=== PATIENT | male | born 1955 | race Caucasian/White ===

== ENCOUNTER 2019-04-06 18:06 | Inpatient (IN) | payer OTHER ==
[2019-04-06 18:20] LABS: ADD MAN DIFF? NO
[2019-04-06 18:24] LABS: BASOPHIL # 0.1 10^3/ul (0.0-0.1); BASOPHILS % 0.7 % (0.0-2.0); EOSINOPHILS # 0.2 10^3/ul (0.0-0.5); EOSINOPHILS % 2.1 % (0.0-7.0); HEMATOCRIT 43.2 % (42.0-52.0); HEMOGLOBIN 14.4 g/dl (14.0-18.0); LYMPHOCYTES # 1.4 10^3/ul (0.8-2.9); LYMPHOCYTES % 18.6 % (15.0-51.0); MEAN CORPUSCULAR HEMOGLOBIN 31.9 pg (29.0-33.0); MEAN CORPUSCULAR HGB CONC 33.3 g/dl (32.0-37.0); MEAN CORPUSCULAR VOLUME 95.6 fl (82.0-101.0); MONOCYTE # 0.6 10^3/ul (0.3-0.9); MONOCYTES % 7.9 % (0.0-11.0); NEUTROPHIL # 5.2 10^3/ul (1.6-7.5); NEUTROPHILS % 70.3 % (39.0-77.0); PLATELET COUNT 153 10^3/UL (140-415); RED BLOOD COUNT 4.52 10^6/ul (4.70-6.10); RED CELL DISTRIBUTION WIDTH 13.2 % (11.5-14.5)
[2019-04-06 18:24] LABS: WHITE BLOOD COUNT 7.5 10^3/ul (4.8-10.8)
[2019-04-06 18:38] LABS: HEMOGLOBIN A1C 5.3 % (0-5.9)
[2019-04-06 18:42] LABS: ALANINE AMINOTRANSFERASE 29 IU/L (13-69); ALBUMIN 4.4 g/dl (3.3-4.9); ALBUMIN/GLOBULIN RATIO 1.62; ALKALINE PHOSPHATASE 68 IU/L (42-121); ANION GAP 10 (5-13); ASPARTATE AMINO TRANSFERASE 23 IU/L (15-46); BILIRUBIN,INDIRECT 0.6 mg/dl (0-1.1); BILIRUBIN,TOTAL 0.6 mg/dl (0.2-1.3); BLOOD UREA NITROGEN 13 mg/dl (7-20); CALCIUM 9.4 mg/dl (8.4-10.2); CARBON DIOXIDE 23 mmol/L (21-31); CHLORIDE 108 mmol/L (97-110); CHOL/HDL RATIO 4.3 RATIO; CHOLESTEROL 138 mg/dl (100-200); CREATINE KINASE 85 IU/L (23-200); CREATININE 1.27 mg/dl (0.61-1.24); Estimated GFR 57 mL/min (>60); GLUCOSE 101 mg/dl (70-220); HDL CHOLESTEROL 32 mg/dl (30-78); LDL CHOLESTEROL,CALCULATED 82 mg/dl; SODIUM 141 mmol/L (135-144); TOTAL PROTEIN 7.1 g/dl (6.1-8.1); TRIGLYCERIDES 119 mg/dl (0-149)
[2019-04-06 18:44] LABS: INR 0.97; PARTIAL THROMBOPLASTIN TIME 29.6 Sec (23.0-35.0)
[2019-04-06 18:51] LABS: ETHANOL < 10.0 mg/dl (0-0)
[2019-04-06 18:53] LABS: CK-MB 0.85 ng/ml (0.0-2.4); TROPONIN-I < 0.012 ng/ml (0.000-0.120)
[2019-04-06] MEDS ORDERED: ONDANSETRON 4 MG INJ IV (20:30)
[2019-04-06] MEDS ORDERED: ACETAMINOPHEN 325 MG TAB PO (20:30)
[2019-04-06] MEDS: ASPIRIN (EC) 81 MG TAB PO (20:51)
[2019-04-06 22:07] LABS: AMPHETAMINE/METHAMPHETAMINE Negative (NEGATIVE); BARBITURATES Negative (NEGATIVE); BENZODIAZEPINES Negative (NEGATIVE); CANNABINOIDS Positive (NEGATIVE); COCAINE Negative (NEGATIVE); OPIATES Negative (NEGATIVE)
[2019-04-06] MEDS: SOD CHLORIDE 0.9% 100 ML (22:56)
[2019-04-06] MEDS: IOHEXOL 100 ML (22:56)
[2019-04-07] MEDS ORDERED: ONDANSETRON 4 MG INJ IV (01:00)
[2019-04-07] MEDS ORDERED: ACETAMINOPHEN 325 MG TAB PO (01:00)
[2019-04-07] MEDS ORDERED: ALBUTEROL/IPRATROPIUM (NEB) 3 ML AMP HHN (01:00)
[2019-04-07] MEDS ORDERED: NACL 0.9% 3 ML SYG IV (01:00)
[2019-04-07 01:27] LABS: ADD UMIC NO; UR ASCORBIC ACID NEGATIVE (NEGATIVE); UR BILIRUBIN (Dip) NEGATIVE (NEGATIVE); UR BLOOD (Dip) NEGATIVE (NEGATIVE); UR CLARITY CLEAR (CLEAR); UR COLOR YELLOW (YELLOW); UR GLUCOSE (Dip) NEGATIVE (NEGATIVE); UR KETONES (Dip) NEGATIVE (NEGATIVE); UR LEUKOCYTE ESTERASE (Dip) NEGATIVE Leu/ul (NEGATIVE); UR NITRITE (Dip) NEGATIVE (NEGATIVE); UR SPECIFIC GRAVITY (Dip) 1.008 (1.003-1.030); UR TOTAL PROTEIN (Dip) NEGATIVE (NEGATIVE); UR UROBILINOGEN (Dip) NEGATIVE (NEGATIVE)
[2019-04-07] MEDS: PANTOPRAZOLE 40 MG INJ IV (01:51)
[2019-04-07 07:25] LABS: ADD MAN DIFF? NO
[2019-04-07 07:33] LABS: BASOPHIL # 0.1 10^3/ul (0.0-0.1); BASOPHILS % 0.9 % (0.0-2.0); EOSINOPHILS # 0.2 10^3/ul (0.0-0.5); EOSINOPHILS % 2.8 % (0.0-7.0); HEMATOCRIT 40.9 % (42.0-52.0); HEMOGLOBIN 13.4 g/dl (14.0-18.0); LYMPHOCYTES # 1.3 10^3/ul (0.8-2.9); MEAN CORPUSCULAR HEMOGLOBIN 31.8 pg (29.0-33.0); MEAN CORPUSCULAR HGB CONC 32.8 g/dl (32.0-37.0); MEAN CORPUSCULAR VOLUME 96.9 fl (82.0-101.0); MEAN PLATELET VOLUME 10.4 fl (7.4-10.4); MONOCYTE # 0.4 10^3/ul (0.3-0.9); MONOCYTES % 7.2 % (0.0-11.0); NEUTROPHIL # 3.7 10^3/ul (1.6-7.5); NEUTROPHILS % 65.7 % (39.0-77.0); PLATELET COUNT 122 10^3/UL (140-415); RED BLOOD COUNT 4.22 10^6/ul (4.70-6.10); RED CELL DISTRIBUTION WIDTH 13.2 % (11.5-14.5)
[2019-04-07 07:33] LABS: WHITE BLOOD COUNT 5.7 10^3/ul (4.8-10.8)
[2019-04-07] MEDS: CLOPIDOGREL 75 MG TAB PO (07:39)
[2019-04-07 07:58] LABS: HEMOGLOBIN A1C 5.4 % (0-5.9)
[2019-04-07 08:16] LABS: ALANINE AMINOTRANSFERASE 27 IU/L (13-69); ALBUMIN 3.8 g/dl (3.3-4.9); ALBUMIN/GLOBULIN RATIO 1.46; ALKALINE PHOSPHATASE 60 IU/L (42-121); ANION GAP 6 (5-13); ASPARTATE AMINO TRANSFERASE 39 IU/L (15-46); BILIRUBIN,INDIRECT 0.6 mg/dl (0-1.1); BILIRUBIN,TOTAL 0.6 mg/dl (0.2-1.3); BLOOD UREA NITROGEN 11 mg/dl (7-20); CARBON DIOXIDE 27 mmol/L (21-31); CHLORIDE 110 mmol/L (97-110); CHOL/HDL RATIO 4.6 RATIO; CHOLESTEROL 125 mg/dl (100-200); CK INDEX 1.2; CK-MB 0.86 ng/ml (0.0-2.4); CREATINE KINASE 71 IU/L (23-200); CREATININE 0.97 mg/dl (0.61-1.24); Estimated GFR > 60 mL/min (>60); GLUCOSE 77 mg/dl (70-220); HDL CHOLESTEROL 27 mg/dl (30-78); LDL CHOLESTEROL,CALCULATED 72 mg/dl; POTASSIUM 3.3 mmol/L (3.5-5.1); SODIUM 143 mmol/L (135-144); TOTAL PROTEIN 6.4 g/dl (6.1-8.1); TRIGLYCERIDES 130 mg/dl (0-149); TROPONIN-I 0.015 ng/ml (0.000-0.120)
[2019-04-07] MEDS: ASPIRIN 81 MG TAB PO (09:14)
[2019-04-07] MEDS: HEPARIN 5,000 UNIT/1 ML VIAL SC ×2 (09:38→20:32)
[2019-04-07] MEDS ORDERED: LORAZEPAM 2 MG INJ IV (12:00)
[2019-04-07] MEDS: POTASSIUM CHLORIDE (SR) 20 MEQ TAB PO (12:01)
[2019-04-07] MEDS: PANTOPRAZOLE (EC) 40 MG TAB PO (12:01)
[2019-04-07] MEDS ORDERED: POTASSIUM CHLORIDE (SR) 20 MEQ TAB PO (13:48)
[2019-04-07] MEDS ORDERED: VANCOMYCIN IV PER PHARMACY XX (14:00)
[2019-04-07] MEDS ORDERED: hydrALAzine 20 MG INJ IV (14:00)
[2019-04-07] MEDS: VANCOMYCIN HCL 2 GM in SOD CHLORIDE 0.9% 500 ML IVPB (15:15)
[2019-04-07 17:11] LABS: ERYTHROCYTE SEDIMENTATION RATE 14 mm/Hr (0-20)
[2019-04-07 17:12] LABS: RAPID PLASMA REAGIN NONREACTIVE (NR)
[2019-04-07] MEDS: ATORVASTATIN 80 MG TAB PO (20:29)
[2019-04-07] MEDS ORDERED: ATORVASTATIN 20 MG TAB PO (21:00)
[2019-04-07] MEDS: LORAZEPAM 2 MG INJ IV (21:13)
[2019-04-07] MEDS: VANCOMYCIN 1.5 GM/NS 250 ML 250 ML IVPB (22:22)
[2019-04-08] MEDS: PANTOPRAZOLE (EC) 40 MG TAB PO (05:50)
[2019-04-08 06:40] LABS: ADD MAN DIFF? NO
[2019-04-08 06:46] LABS: BASOPHILS % 0.8 % (0.0-2.0); EOSINOPHILS # 0.1 10^3/ul (0.0-0.5); EOSINOPHILS % 2.6 % (0.0-7.0); HEMATOCRIT 40.8 % (42.0-52.0); HEMOGLOBIN 13.4 g/dl (14.0-18.0); LYMPHOCYTES # 1.2 10^3/ul (0.8-2.9); LYMPHOCYTES % 23.7 % (15.0-51.0); MEAN CORPUSCULAR HEMOGLOBIN 31.8 pg (29.0-33.0); MEAN CORPUSCULAR HGB CONC 32.8 g/dl (32.0-37.0); MEAN CORPUSCULAR VOLUME 96.7 fl (82.0-101.0); MEAN PLATELET VOLUME 10.2 fl (7.4-10.4); MONOCYTE # 0.5 10^3/ul (0.3-0.9); MONOCYTES % 10.4 % (0.0-11.0); NEUTROPHIL # 3.1 10^3/ul (1.6-7.5); NEUTROPHILS % 62.3 % (39.0-77.0); PLATELET COUNT 113 10^3/UL (140-415); POSITIVE DIFF @See below; RED BLOOD COUNT 4.22 10^6/ul (4.70-6.10); RED CELL DISTRIBUTION WIDTH 13.2 % (11.5-14.5)
[2019-04-08 07:20] LABS: ANION GAP 5 (5-13); BLOOD UREA NITROGEN 8 mg/dl (7-20); CALCIUM 8.9 mg/dl (8.4-10.2); CARBON DIOXIDE 26 mmol/L (21-31); CHLORIDE 111 mmol/L (97-110); CREATININE 0.78 mg/dl (0.61-1.24); Estimated GFR > 60 mL/min (>60); GLUCOSE 93 mg/dl (70-220); PHOSPHORUS 3.6 mg/dl (2.5-4.9); POTASSIUM 3.4 mmol/L (3.5-5.1); SODIUM 142 mmol/L (135-144)
[2019-04-08] MEDS: CLOPIDOGREL 75 MG TAB PO (08:44)
[2019-04-08] MEDS: ASPIRIN 81 MG TAB PO (08:45)
[2019-04-08] MEDS: VANCOMYCIN 1.5 GM/NS 250 ML 250 ML IVPB (09:00)
[2019-04-08] MEDS: HEPARIN 5,000 UNIT/1 ML VIAL SC ×2 (09:04→21:47)
[2019-04-08] MEDS ORDERED: AMLODIPINE 5 MG TAB PO (10:30)
[2019-04-08] MEDS: METOPROLOL 50 MG TAB PO (11:05)
[2019-04-08] MEDS: ATORVASTATIN 80 MG TAB PO (21:42)
[2019-04-09] MEDS: PANTOPRAZOLE (EC) 40 MG TAB PO (06:06)
[2019-04-09] MEDS: CLOPIDOGREL 75 MG TAB PO (08:47)
[2019-04-09] MEDS: ASPIRIN 81 MG TAB PO (08:47)
[2019-04-09] MEDS: METOPROLOL 50 MG TAB PO (08:48)
[2019-04-09] MEDS ORDERED: CEPHALEXIN 500 MG CAP PO (09:00)
== END 2019-04-09 09:32 | disposition home or self-care (01) | DRG 69 ==
LOC: E/R 18:06 → TEL 20:11
DX: G45.9 Transient cerebral ischemic attack, unspecified (principal); N17.9 Acute kidney failure, unspecified; Z68.41 Body mass index [BMI] 40.0-44.9, adult; N39.0 Urinary tract infection, site not specified; I25.10 Atherosclerotic heart disease of native coronary artery without angina pectoris; I10 Essential (primary) hypertension; E78.5 Hyperlipidemia, unspecified; E66.01 Morbid (severe) obesity due to excess calories; B95.1 Streptococcus, group B, as the cause of diseases classified elsewhere; Z95.5 Presence of coronary angioplasty implant and graft
CPT/HCPCS: 70450; 70496; 70498; 70551; 71045; 80048; 80053; 80061; 80307; 81003; 82550; 82553; 82962; 83036; 83735; 84100; 84443; 84484; 85025; 85610; 85651; 85730; 86592; 87040-91; 87086; 92610; 93005; 93306; 97116; 97161; 97166; 99285-25; G0378

== ENCOUNTER 2019-05-03 10:29 | Emergency (ER) | payer OTHER ==
[2019-05-03 11:19] LABS: ADD MAN DIFF? NO
[2019-05-03 11:23] LABS: WHITE BLOOD COUNT 5.2 10^3/ul (4.8-10.8)
[2019-05-03 11:23] LABS: BASOPHILS % 0.8 % (0.0-2.0); EOSINOPHILS # 0.2 10^3/ul (0.0-0.5); EOSINOPHILS % 3.1 % (0.0-7.0); HEMATOCRIT 39.2 % (42.0-52.0); HEMOGLOBIN 13.3 g/dl (14.0-18.0); LYMPHOCYTES # 1.3 10^3/ul (0.8-2.9); LYMPHOCYTES % 24.2 % (15.0-51.0); MEAN CORPUSCULAR HEMOGLOBIN 32.3 pg (29.0-33.0); MEAN CORPUSCULAR HGB CONC 33.9 g/dl (32.0-37.0); MEAN CORPUSCULAR VOLUME 95.1 fl (82.0-101.0); MEAN PLATELET VOLUME 9.8 fl (7.4-10.4); MONOCYTE # 0.4 10^3/ul (0.3-0.9); MONOCYTES % 8.3 % (0.0-11.0); NEUTROPHIL # 3.3 10^3/ul (1.6-7.5); NEUTROPHILS % 63.2 % (39.0-77.0); PLATELET COUNT 130 10^3/UL (140-415); RED BLOOD COUNT 4.12 10^6/ul (4.70-6.10); RED CELL DISTRIBUTION WIDTH 12.8 % (11.5-14.5)
[2019-05-03 11:41] LABS: ANION GAP 8 (5-13); BLOOD UREA NITROGEN 12 mg/dl (7-20); CALCIUM 9.5 mg/dl (8.4-10.2); CARBON DIOXIDE 25 mmol/L (21-31); CHLORIDE 107 mmol/L (97-110); CREATININE 0.97 mg/dl (0.61-1.24); Estimated GFR > 60 mL/min (>60); GLUCOSE 96 mg/dl (70-220); POTASSIUM 3.8 mmol/L (3.5-5.1); SODIUM 140 mmol/L (135-144)
[2019-05-03 11:54] LABS: TROPONIN-I < 0.012 ng/ml (0.000-0.120)
== END 2019-05-03 12:36 | disposition home or self-care (01) ==
LOC: E/R 10:29
DX: R55 Syncope and collapse (principal); I10 Essential (primary) hypertension; I25.10 Atherosclerotic heart disease of native coronary artery without angina pectoris; J44.9 Chronic obstructive pulmonary disease, unspecified; Z79.82 Long term (current) use of aspirin; Z98.61 Coronary angioplasty status
CPT/HCPCS: 36415; 70450; 71045; 80048; 84484; 85025; 93005; 99285-25